=== PATIENT | female | born 1980 | race Caucasian/White ===

== ENCOUNTER 2016-07-30 01:53 | Emergency (ER) | payer MEDICARE, MEDICAID ==
[~2016-07-30] VITALS: Ht 167.6 cm; Wt 65.0 kg
[~2016-07-30 01:53] MED LIST: ALPR1TAB2 PO; ATOM40CA PO; BACL-19 PO; BUSP5TAB2 PO; CEFD300C2 PO; CLIN300C93 PO; CLON0.5T PO; GABA600T PO; LITH300C PO; LITH300T3 PO; LITH600C PO; LORA-446 PO; OLAN15TA3 PO; OLAN5TAB3 PO; OMEP40CA6 PO; PREG50CA PO; TRAZ100T15 PO; TRAZ150T68 PO; TRAZ50TA18 PO; ZIPR40CA2 PO; ZIPR80CA2 PO; ZOLP10TA PO
[2016-07-30 02:06] VITALS: BP 116/84
[2016-07-30] MEDS ORDERED: HYDROcodone/APAP 5/325 TABLET ONE (02:51)
[2016-07-30 02:55] LABS: HEMOGLOBIN 14.4 g/dL (11.7-16.4)
[2016-07-30] MEDS ORDERED: HYDROcodone/APAP 5/325 TABLET PO ONE (03:00)
[2016-07-30 03:08] LABS: ASPARTATE AMINO TRANSFERASE 15 U/L (15-37); BLOOD UREA NITROGEN 14 mg/dL (7-18)
[2016-07-30 03:48] LABS: HCG UR OBC PASS
== END 2016-07-30 03:34 | disposition home or self-care (01) ==
LOC: ED 02:48
DX: R10.9 Unspecified abdominal pain (principal); R51 Headache; G89.29 Other chronic pain; G40.909 Epilepsy, unspecified, not intractable, without status epilepticus
CPT/HCPCS: 36415; 80053; 81001; 81025; 83690; 85025; 87086; 99284

== ENCOUNTER 2016-09-12 15:01 | Emergency (ER) | payer MEDICARE, MEDICAID ==
[~2016-09-12] VITALS: Ht 167.6 cm; Wt 67.8 kg
[~2016-09-12 15:01] MED LIST changes: -CEFD300C2 PO; +CEFD300C37 PO
[2016-09-12 15:06] VITALS: BP 120/85
[2016-09-12] MEDS ORDERED: LORazepam 1MG TABLET PO ONE (16:00)
== END 2016-09-12 16:31 | disposition left against medical advice (07) ==
LOC: ED 15:47
DX: F41.9 Anxiety disorder, unspecified (principal); F43.9 Reaction to severe stress, unspecified; F15.10 Other stimulant abuse, uncomplicated; K21.9 Gastro-esophageal reflux disease without esophagitis; F31.9 Bipolar disorder, unspecified
CPT/HCPCS: 99284

== ENCOUNTER 2016-12-15 18:40 | Emergency (ER) | payer MEDICARE, MEDICAID ==
[~2016-12-15] VITALS: Ht 167.6 cm; Wt 70.0 kg
[~2016-12-15 18:40] MED LIST changes: +CLIN300C8 PO; -CLIN300C93 PO; +TRAZ150T62 PO; -TRAZ150T68 PO
[2016-12-15] MEDS ORDERED: ONDANSETRON ODT 4 MG ONE (19:09)
[2016-12-15] MEDS ORDERED: LORazepam 1MG TABLET ONE (19:09)
[2016-12-15 19:16] LABS: HEMATOCRIT 38.6 % (34.6-47.8); HEMOGLOBIN 13.2 g/dL (11.7-16.4); WHITE BLOOD COUNT 6.2 x10^3/uL (3.4-10)
[2016-12-15 19:27] LABS: ASPARTATE AMINO TRANSFERASE 31 U/L (15-37); BLOOD UREA NITROGEN 18 mg/dL (7-18)
[2016-12-15] MEDS ORDERED: LORazepam 1MG TABLET PO ONE (19:30)
[2016-12-15] MEDS ORDERED: ONDANSETRON ODT 4 MG PO ONE (19:30)
[2016-12-15] MEDS ORDERED: POTASSIUM CHLORIDE 20 MEQ TAB.ER.PRT ONE (19:53)
[2016-12-15 19:59] VITALS: BP 122/75
[2016-12-15] MEDS ORDERED: POTASSIUM CHLORIDE 20 MEQ TAB.ER.PRT PO ONE (20:00)
[2016-12-15] MEDS ORDERED: IBUPROFEN 200 MG TABLET ONE (20:06)
[2016-12-15] MEDS ORDERED: IBUPROFEN 200 MG TABLET PO ONE (20:30)
== END 2016-12-15 20:32 | disposition home or self-care (01) ==
LOC: ED 20:14
DX: R10.11 Right upper quadrant pain (principal); R10.12 Left upper quadrant pain; R10.13 Epigastric pain; B35.3 Tinea pedis; F15.10 Other stimulant abuse, uncomplicated; F31.9 Bipolar disorder, unspecified; F10.20 Alcohol dependence, uncomplicated
CPT/HCPCS: 36415; 76700; 80053; 81001; 83690; 84703; 85025; 93005; 99285; Q0162

== ENCOUNTER 2017-04-06 07:23 | Emergency (ER) | payer MEDICARE, MEDICAID ==
[~2017-04-06] VITALS: Ht 167.6 cm; Wt 70.5 kg
[2017-04-06 07:27] VITALS: BP 131/87
[2017-04-06] MEDS ORDERED: KETOROLAC 30 MG/1 ML IVPush ONE (08:00)
[2017-04-06] MEDS ORDERED: LORazepam 2 MG/ML, 1ML IVPush ONE (08:00)
[2017-04-06] MEDS ORDERED: SODIUM CHLORIDE 0.9% 1,000ML IVBOLUS ONE (08:00)
[2017-04-06] MEDS ORDERED: DIPHENHYDRAMINE 50 MG/ML, 1ML IVPush ONE (08:00)
[2017-04-06] MEDS ORDERED: SODIUM CHLORIDE FLUSH 10ML SYR IVF ONE (08:00)
[2017-04-06] MEDS ORDERED: METOCLOPRAMIDE 5 MG/ML, 2ML IVPush ONE (08:00)
[2017-04-06] MEDS ORDERED: KETOROLAC 30 MG/1 ML ONE (08:13)
[2017-04-06] MEDS ORDERED: METOCLOPRAMIDE 5 MG/ML, 2ML ONE (08:13)
[2017-04-06] MEDS ORDERED: DIPHENHYDRAMINE 50 MG/ML, 1ML ONE (08:13)
[2017-04-06] MEDS ORDERED: LORazepam 2 MG/ML, 1ML ONE (08:14)
== END 2017-04-06 09:05 | disposition home or self-care (01) ==
LOC: ED 08:33
DX: G43.909 Migraine, unspecified, not intractable, without status migrainosus (principal); K21.9 Gastro-esophageal reflux disease without esophagitis; F90.9 Attention-deficit hyperactivity disorder, unspecified type
CPT/HCPCS: 82962; 96374; 96375; 99284; J1200; J1885; J2060; J2765; J7030

== ENCOUNTER 2017-05-11 10:27 | Emergency (ER) | payer MEDICARE, MEDICAID ==
[~2017-05-11] VITALS: Ht 167.6 cm; Wt 76.3 kg
[2017-05-11 11:58] VITALS: BP 128/86
== END 2017-05-11 12:00 | disposition home or self-care (01) ==
LOC: ED 11:05
DX: F15.180 Other stimulant abuse with stimulant-induced anxiety disorder (principal); F31.9 Bipolar disorder, unspecified; K21.9 Gastro-esophageal reflux disease without esophagitis; F43.10 Post-traumatic stress disorder, unspecified; F90.9 Attention-deficit hyperactivity disorder, unspecified type; G40.909 Epilepsy, unspecified, not intractable, without status epilepticus; G89.29 Other chronic pain; Z88.0 Allergy status to penicillin; Z88.1 Allergy status to other antibiotic agents
CPT/HCPCS: 99284; Q0177

== ENCOUNTER 2017-05-23 23:34 | Emergency (ER) | payer MEDICARE, MEDICAID ==
[~2017-05-23] VITALS: Ht 167.6 cm; Wt 74.1 kg
[2017-05-23 23:36] VITALS: BP 140/95
[2017-05-24] MEDS ORDERED: DEXAMETHASONE 4 MG TABLET PO STA (00:40)
[2017-05-24] MEDS ORDERED: DEXAMETHASONE 4 MG TABLET ONE (00:46)
[2017-05-24] MEDS ORDERED: LORazepam 1MG TABLET ONE (00:47)
[2017-05-24] MEDS ORDERED: LORazepam 1MG TABLET PO ONE (01:00)
== END 2017-05-24 01:06 | disposition home or self-care (01) ==
LOC: ED 05-24 00:28
DX: F41.1 Generalized anxiety disorder (principal); J02.8 Acute pharyngitis due to other specified organisms; B97.89 Other viral agents as the cause of diseases classified elsewhere; G40.909 Epilepsy, unspecified, not intractable, without status epilepticus; F32.9 Major depressive disorder, single episode, unspecified
CPT/HCPCS: 99284

== ENCOUNTER 2017-10-26 21:19 | Emergency (ER) | payer MEDICARE, MEDICAID ==
[2017-10-26 21:21] VITALS: BP 150/83
[2017-10-26] MEDS ORDERED: IBUPROFEN 200 MG TABLET PO ONE (22:00)
[2017-10-26] MEDS ORDERED: IBUPROFEN 200 MG TABLET ONE (22:00)
== END 2017-10-26 22:32 | disposition home or self-care (01) ==
LOC: ED 22:17
DX: R21 Rash and other nonspecific skin eruption (principal); K21.9 Gastro-esophageal reflux disease without esophagitis; F29 Unspecified psychosis not due to a substance or known physiological condition; F43.10 Post-traumatic stress disorder, unspecified; G40.909 Epilepsy, unspecified, not intractable, without status epilepticus; F17.210 Nicotine dependence, cigarettes, uncomplicated
CPT/HCPCS: 82962; 99282

== ENCOUNTER 2018-04-19 12:50 | Emergency (ER) | payer MEDICARE, MEDICAID ==
[~2018-04-19] VITALS: Ht 167.6 cm; Wt 86.0 kg
[~2018-04-19 12:50] MED LIST changes: +TRAZ-137 PO; -TRAZ100T15 PO; -TRAZ50TA18 PO; +TRAZ50TA66 PO
--- NOTE | 2018-04-19 13:21 | NUR ---
PT PRESENTS TO ED WITH INTERMITTENT SHOOTING CP TO LEFT CHEST AND SHOULDER WITH UNDERLYING CONSTANT DULL ACHE. BEGAN THIS AM AT MIDNIGHT AFTER METH USE. PT ALSO STATES THAT A CLOSE FRIEND RECENTLY AND IS MAKING SYMPTOMS WORSE. CONNECTED TO ALL MONITORS. HR HIGH, ALL OTHER VSS. MD AT BEDSIDE FOR ASSESSMENT. AWAITING ORDERS.
[2018-04-19] MEDS ORDERED: IBUPROFEN 200 MG TABLET PO ONE (13:30)
[2018-04-19] MEDS ORDERED: IBUPROFEN 200 MG TABLET ONE (13:33)
--- NOTE | 2018-04-19 13:36 | NUR ---
pt medicated for pain. awaiting results at this time.
[2018-04-19 13:57] VITALS: BP 150/94
--- NOTE | 2018-04-19 14:16 | NUR ---
F/U CALL PLACED TO LAB, TECH STATES 4 MINUTES UNTIL ABLE TO POST RESULT
[2018-04-19 14:20] LABS: TROPONIN I < 0.015 ng/mL (0.000-0.045)
--- NOTE | 2018-04-19 14:23 | NUR ---
pt requesting med for episodes of crying and anxiety. md aware. no orders received at this time. pt states understanding and is resting in bed. increased hr, all other vss.
== END 2018-04-19 15:04 | disposition home or self-care (01) ==
LOC: ED 14:57
DX: R07.89 Other chest pain (principal); F15.10 Other stimulant abuse, uncomplicated; F32.9 Major depressive disorder, single episode, unspecified; F90.9 Attention-deficit hyperactivity disorder, unspecified type
CPT/HCPCS: 36415; 71045; 84484; 93005; 99284

== ENCOUNTER 2019-10-27 16:38 | Inpatient (IN) | payer MEDICARE, MEDICAID ==
[~2019-10-27] VITALS: Ht 170.2 cm; Wt 83.3 kg
[~2019-10-27 16:38] MED LIST changes: +OMEP40CA42 PO; -OMEP40CA6 PO; -TRAZ-137 PO; +TRAZ-175 PO
[2019-10-27 20:47] LABS: MICROSCOPIC AUTO
[2019-10-27] MEDS ORDERED: POLYETHYLENE GLYCOL 17 GM PACKET PO PRN (21:00)
[2019-10-27] MEDS ORDERED: BISACODYL 10 MG SUPP PR PRN (21:00)
[2019-10-27] MEDS ORDERED: PLEASE ENTER HEIGHT AND WEIGHT MC SCH (21:30)
[2019-10-27] MEDS: TRAZODONE 150MG TABLET PO SCH (21:31)
[2019-10-27] MEDS: ACETAMINOPHEN 325 MG TABLET PO PRN (21:32)
[2019-10-27] MEDS: OLANZAPINE 10 MG TABLET PO SCH (21:32)
[2019-10-27] MEDS: HYDROXYZINE PAMOATE 50MG CAP PO PRN (21:33)
[2019-10-27] MEDS: HYDROcodone/APAP 5/325 TABLET PO PRN (21:34)
[2019-10-27] MEDS: LAMOTRIGINE 200 MG TABLET PO SCH (21:51)
[2019-10-27] MEDS: GABAPENTIN 100 MG CAPSULE PO SCH (21:52)
[2019-10-27 22:00] VITALS: BP 127/90
[2019-10-27 22:21] LABS: AMPHETAMINE SCREEN, URINE Positive (Negative); BARBITURATE SCREEN, URINE Negative (Negative); BENZODIAZEPINE SCREEN, URINE Negative (Negative); CANNABINOID SCREEN, URINE Negative (Negative); COCAINE SCREEN, URINE Negative (Negative); METHADONE SCREEN, URINE Negative (Negative); OPIATE SCREEN, URINE Positive (Negative)
[2019-10-28] MEDS: PANTOPRAZOLE 40MG TABLET PO SCH (05:43)
[2019-10-28] MEDS: HYDROcodone/APAP 5/325 TABLET PO PRN ×2 (05:53→14:22)
[2019-10-28 07:38] VITALS: BP 114/74
[2019-10-28 08:59] LABS: BASOPHILS # (AUTO) 0.03 x10^3/uL (0-0.1); BASOPHILS % (AUTO) 1 % (0-1); EOSINOPHILS # (AUTO) 0.19 x10^3/uL (0-0.4); EOSINOPHILS % (AUTO) 4 % (1-7); LYMPHOCYTES # (AUTO) 1.83 x10^3/uL (1-3.4); LYMPHOCYTES % (AUTO) 37 % (22-44); MD NO; MEAN CORPUSCULAR HEMOGLOBIN 24.6 pg (27.0-34.8); MEAN CORPUSCULAR HGB CONC 31.2 g/dL (32.4-35.8); MEAN PLATELET VOLUME 8.3 fL (7.4-10.4); MONOCYTES # (AUTO) 0.47 x10^3/uL (0.2-0.8); MONOCYTES % (AUTO) 10 % (2-9); NEUTROPHILS # (AUTO) 2.47 x10^3/uL (1.8-6.8); NEUTROPHILS % (AUTO) 50 % (42-75); PLATELET COUNT 242 x10^3/uL (130-400); RED BLOOD COUNT 4.47 x10^6/uL (3.82-5.3); RED CELL DISTRIBUTION WIDTH 17.7 % (9.6-15.2)
[2019-10-28] MEDS: HYDROXYZINE PAMOATE 50MG CAP PO PRN (10:24)
[2019-10-28] MEDS: ESCITALOPRAM 10MG TABLET PO SCH (10:25)
[2019-10-28] MEDS: GABAPENTIN 100 MG CAPSULE PO SCH ×3 (10:25→20:12)
[2019-10-28 10:45] LABS: ALBUMIN 3.3 g/dL (3.4-5.0); CALCIUM 8.8 mg/dL (8.5-10.1)
[2019-10-28] MEDS ORDERED: ORAJEL 7GM TUBE MM PRN (11:00)
[2019-10-28 11:02] LABS: ALANINE AMINOTRANSFERASE 26 U/L (12-78); ALKALINE PHOSPHATASE 79 U/L (45-117); BILIRUBIN,TOTAL 0.3 mg/dL (0.2-1.0); CHOL/HDL RATIO 4.7; CHOLESTEROL, TOTAL 174 mg/dL (140-239); CREATININE 0.77 mg/dL (0.55-1.02); HDL CHOL % 21 % (28-40); HDL CHOLESTEROL (DIRECT) 37 mg/dL (40-60); TOTAL PROTEIN 7.2 g/dL (6.4-8.2)
[2019-10-28 11:19] LABS: ANION GAP 4 mmol/L (5-15); BILIRUBIN, DIRECT < 0.1 mg/dL (0.1-0.2); BILIRUBIN,INDIRECT 0.2 mg/dL (0.0-2.0); CHLORIDE 109 mmol/L (98-107)
[2019-10-28 12:00] LABS: FREE T4 (FREE THYROXINE) 1.17 ng/dL (0.76-1.46); LDL CHOLESTEROL,CALCULATED 101 mg/dL (54-169); LDL/HDL RATIO 2.7 (0.5-3.0); TRIGLYCERIDES 180 mg/dL (50-200); VLDL CHOLESTEROL 36 mg/dL (0-25)
[2019-10-28] MEDS: CEFDINIR 300 MG CAPSULE PO SCH ×2 (12:06→20:13)
[2019-10-28] MEDS: NICOTINE 14MG/24 HR PATCH.TD24 TD SCH (12:07)
[2019-10-28] MEDS: CHLORHEXIDINE 15 ML UDC MM SCH ×3 (12:08→20:16)
[2019-10-28] MEDS: LORazepam 1MG TABLET PO PRN (15:44)
[2019-10-28] MEDS: FERROUS GLUCONATE 324 MG TABLET PO SCH (17:16)
[2019-10-28 19:30] VITALS: BP 123/87
[2019-10-28] MEDS: TRAZODONE 150MG TABLET PO SCH (20:12)
[2019-10-28] MEDS: LAMOTRIGINE 200 MG TABLET PO SCH (20:13)
[2019-10-28] MEDS: OLANZAPINE 10 MG TABLET PO SCH (20:14)
[2019-10-29] MEDS: PANTOPRAZOLE 40MG TABLET PO SCH (06:37)
[2019-10-29 07:30] VITALS: BP 163/95
[2019-10-29] MEDS: GABAPENTIN 100 MG CAPSULE PO SCH ×3 (08:50→20:52)
[2019-10-29] MEDS: FERROUS GLUCONATE 324 MG TABLET PO SCH (08:51)
[2019-10-29] MEDS: ESCITALOPRAM 10MG TABLET PO SCH (08:51)
[2019-10-29] MEDS: CEFDINIR 300 MG CAPSULE PO SCH (08:51)
[2019-10-29] MEDS: CHLORHEXIDINE 15 ML UDC MM SCH ×5 (08:52→20:52)
[2019-10-29] MEDS: LORazepam 1MG TABLET PO PRN ×3 (08:57→20:51)
[2019-10-29] MEDS: NICOTINE 14MG/24 HR PATCH.TD24 TD SCH (08:58)
[2019-10-29 19:40] VITALS: BP 110/72
[2019-10-29] MEDS: LAMOTRIGINE 200 MG TABLET PO SCH (20:51)
[2019-10-29] MEDS: TRAZODONE 150MG TABLET PO SCH (20:51)
[2019-10-29] MEDS: OLANZAPINE 10 MG TABLET PO SCH (20:52)
[2019-10-30] MEDS: PANTOPRAZOLE 40MG TABLET PO SCH (06:12)
[2019-10-30 07:51] VITALS: BP 102/68
[2019-10-30] MEDS: GABAPENTIN 100 MG CAPSULE PO SCH ×3 (08:59→20:24)
[2019-10-30] MEDS: CHLORHEXIDINE 15 ML UDC MM SCH ×3 (09:00→20:30)
[2019-10-30] MEDS: IRON SUCROSE COMPLEX 100MG/5ML IV SCH (09:00)
[2019-10-30] MEDS: ESCITALOPRAM 10MG TABLET PO SCH (09:00)
[2019-10-30] MEDS: NICOTINE 14MG/24 HR PATCH.TD24 TD SCH (09:12)
[2019-10-30] MEDS: LORazepam 1MG TABLET PO PRN ×3 (09:13→22:21)
[2019-10-30 19:40] VITALS: BP 117/80
[2019-10-30] MEDS: OLANZAPINE 10 MG TABLET PO SCH (20:24)
[2019-10-30] MEDS: TRAZODONE 150MG TABLET PO SCH (20:24)
[2019-10-30] MEDS: LAMOTRIGINE 200 MG TABLET PO SCH (20:24)
[2019-10-31] MEDS: PANTOPRAZOLE 40MG TABLET PO SCH (05:49)
[2019-10-31 07:32] VITALS: BP 110/70
[2019-10-31] MEDS: ESCITALOPRAM 10MG TABLET PO SCH (08:45)
[2019-10-31] MEDS: CHLORHEXIDINE 15 ML UDC MM SCH ×3 (08:45→21:28)
[2019-10-31] MEDS: GABAPENTIN 100 MG CAPSULE PO SCH ×3 (08:46→21:27)
[2019-10-31] MEDS: IRON SUCROSE COMPLEX 100MG/5ML IV SCH (08:46)
[2019-10-31] MEDS: NICOTINE 14MG/24 HR PATCH.TD24 TD SCH (09:00)
[2019-10-31] MEDS: LORazepam 1MG TABLET PO PRN ×3 (09:00→21:27)
[2019-10-31] MEDS: DOCUSATE 100 MG CAPSULE PO PRN (16:42)
[2019-10-31 19:43] VITALS: BP 110/73
[2019-10-31] MEDS: LAMOTRIGINE 200 MG TABLET PO SCH (21:26)
[2019-10-31] MEDS: OLANZAPINE 10 MG TABLET PO SCH (21:27)
[2019-10-31] MEDS: TRAZODONE 150MG TABLET PO SCH (21:27)
[2019-11-01] MEDS: PANTOPRAZOLE 40MG TABLET PO SCH (05:59)
[2019-11-01 07:25] VITALS: BP 115/72
[2019-11-01] MEDS: NICOTINE 14MG/24 HR PATCH.TD24 TD SCH (08:52)
[2019-11-01] MEDS: LORazepam 1MG TABLET PO PRN ×3 (08:54→21:36)
[2019-11-01] MEDS: GABAPENTIN 100 MG CAPSULE PO SCH ×3 (08:54→20:15)
[2019-11-01] MEDS: ESCITALOPRAM 10MG TABLET PO SCH (08:54)
[2019-11-01] MEDS: CHLORHEXIDINE 15 ML UDC MM SCH ×3 (09:00→20:19)
[2019-11-01 19:32] VITALS: BP 112/74
[2019-11-01] MEDS: OLANZAPINE 10 MG TABLET PO SCH (20:14)
[2019-11-01] MEDS: LAMOTRIGINE 200 MG TABLET PO SCH (20:15)
[2019-11-01] MEDS: TRAZODONE 150MG TABLET PO SCH (20:15)
[2019-11-01] MEDS: ACETAMINOPHEN 325 MG TABLET PO PRN (21:45)
[2019-11-02] MEDS: PANTOPRAZOLE 40MG TABLET PO SCH (05:58)
[2019-11-02 07:53] VITALS: BP 101/67
[2019-11-02] MEDS: LORazepam 1MG TABLET PO PRN ×2 (08:11→16:34)
[2019-11-02] MEDS: GABAPENTIN 100 MG CAPSULE PO SCH ×3 (08:11→20:11)
[2019-11-02] MEDS: ESCITALOPRAM 10MG TABLET PO SCH (08:11)
[2019-11-02] MEDS: NICOTINE 14MG/24 HR PATCH.TD24 TD SCH (08:14)
[2019-11-02] MEDS: CHLORHEXIDINE 15 ML UDC MM SCH ×3 (09:00→20:11)
[2019-11-02] MEDS: DOCUSATE 100 MG CAPSULE PO PRN (13:07)
[2019-11-02] MEDS: ACETAMINOPHEN 325 MG TABLET PO PRN ×2 (14:52→21:47)
[2019-11-02 19:38] VITALS: BP 114/72
[2019-11-02] MEDS: OLANZAPINE 10 MG TABLET PO SCH (20:11)
[2019-11-02] MEDS: LAMOTRIGINE 200 MG TABLET PO SCH (20:11)
[2019-11-02] MEDS: TRAZODONE 150MG TABLET PO SCH (21:43)
[2019-11-03] MEDS: PANTOPRAZOLE 40MG TABLET PO SCH (05:28)
[2019-11-03 07:39] VITALS: BP 108/74
[2019-11-03] MEDS: LORazepam 1MG TABLET PO PRN ×2 (08:10→16:35)
[2019-11-03] MEDS: GABAPENTIN 100 MG CAPSULE PO SCH ×3 (08:10→20:15)
[2019-11-03] MEDS: CHLORHEXIDINE 15 ML UDC MM SCH ×3 (08:11→20:15)
[2019-11-03] MEDS: ESCITALOPRAM 10MG TABLET PO SCH (08:11)
[2019-11-03] MEDS: NICOTINE 14MG/24 HR PATCH.TD24 TD SCH (08:11)
[2019-11-03] MEDS: ONDANSETRON ODT 4 MG PO PRN (08:55)
[2019-11-03 19:30] VITALS: BP 108/75
[2019-11-03] MEDS: OLANZAPINE 10 MG TABLET PO SCH (20:15)
[2019-11-03] MEDS: LAMOTRIGINE 200 MG TABLET PO SCH (20:15)
[2019-11-03] MEDS: ACETAMINOPHEN 325 MG TABLET PO PRN (20:15)
[2019-11-03] MEDS: TRAZODONE 150MG TABLET PO SCH (22:07)
[2019-11-04] MEDS: PANTOPRAZOLE 40MG TABLET PO SCH (05:30)
[2019-11-04 08:00] VITALS: BP 103/70
[2019-11-04] MEDS: LORazepam 1MG TABLET PO PRN ×2 (08:21→17:54)
[2019-11-04] MEDS: GABAPENTIN 100 MG CAPSULE PO SCH ×3 (08:21→20:21)
[2019-11-04] MEDS: ESCITALOPRAM 10MG TABLET PO SCH (08:22)
[2019-11-04] MEDS: NICOTINE 14MG/24 HR PATCH.TD24 TD SCH (09:00)
[2019-11-04] MEDS: CHLORHEXIDINE 15 ML UDC MM SCH ×3 (09:00→20:25)
[2019-11-04 19:55] VITALS: BP 112/77
[2019-11-04] MEDS: OLANZAPINE 10 MG TABLET PO SCH (20:21)
[2019-11-04] MEDS: LAMOTRIGINE 200 MG TABLET PO SCH (20:21)
[2019-11-04] MEDS: TRAZODONE 150MG TABLET PO SCH (20:22)
[2019-11-05] MEDS: PANTOPRAZOLE 40MG TABLET PO SCH (05:48)
[2019-11-05] MEDS: LORazepam 1MG TABLET PO PRN ×3 (05:48→20:32)
[2019-11-05 07:32] VITALS: BP 114/80
[2019-11-05] MEDS: CHLORHEXIDINE 15 ML UDC MM SCH ×3 (08:42→20:31)
[2019-11-05] MEDS: GABAPENTIN 100 MG CAPSULE PO SCH ×3 (08:42→20:32)
[2019-11-05] MEDS: ESCITALOPRAM 10MG TABLET PO SCH (08:57)
[2019-11-05] MEDS: NICOTINE 14MG/24 HR PATCH.TD24 TD SCH ×2 (09:14→10:41)
[2019-11-05] MEDS: ACETAMINOPHEN 325 MG TABLET PO PRN ×2 (10:46→17:27)
[2019-11-05] MEDS: DOCUSATE 100 MG CAPSULE PO PRN (10:46)
[2019-11-05 13:20] VITALS: BP 111/77
[2019-11-05 19:56] VITALS: BP 117/80
[2019-11-05] MEDS: LAMOTRIGINE 200 MG TABLET PO SCH (20:32)
[2019-11-05] MEDS: OLANZAPINE 10 MG TABLET PO SCH (20:32)
[2019-11-05] MEDS: TRAZODONE 150MG TABLET PO SCH (21:00)
[2019-11-06] MEDS: PANTOPRAZOLE 40MG TABLET PO SCH (06:08)
[2019-11-06] MEDS: LORazepam 1MG TABLET PO PRN ×3 (06:12→19:54)
[2019-11-06 07:15] VITALS: BP 108/75
[2019-11-06] MEDS: GABAPENTIN 100 MG CAPSULE PO SCH ×3 (08:18→21:54)
[2019-11-06] MEDS: ESCITALOPRAM 10MG TABLET PO SCH (08:18)
[2019-11-06] MEDS: NICOTINE 14MG/24 HR PATCH.TD24 TD SCH (08:18)
[2019-11-06] MEDS: CHLORHEXIDINE 15 ML UDC MM SCH ×3 (08:19→21:54)
[2019-11-06] MEDS: ACETAMINOPHEN 325 MG TABLET PO PRN ×3 (09:50→23:11)
[2019-11-06 19:23] VITALS: BP 114/78
[2019-11-06] MEDS: TRAZODONE 150MG TABLET PO SCH (21:53)
[2019-11-06] MEDS: OLANZAPINE 10 MG TABLET PO SCH (21:53)
[2019-11-06] MEDS: LAMOTRIGINE 200 MG TABLET PO SCH (21:53)
[2019-11-07] MEDS: PANTOPRAZOLE 40MG TABLET PO SCH (06:14)
[2019-11-07 07:31] VITALS: BP 118/78
[2019-11-07] MEDS: ESCITALOPRAM 10MG TABLET PO SCH (08:02)
[2019-11-07] MEDS: NICOTINE 14MG/24 HR PATCH.TD24 TD SCH (08:02)
[2019-11-07] MEDS: LORazepam 1MG TABLET PO PRN ×2 (08:02→15:26)
[2019-11-07] MEDS: GABAPENTIN 100 MG CAPSULE PO SCH ×3 (08:02→19:57)
[2019-11-07] MEDS: CHLORHEXIDINE 15 ML UDC MM SCH ×3 (08:03→20:09)
[2019-11-07] MEDS: ONDANSETRON ODT 4 MG PO PRN ×2 (08:42→18:21)
[2019-11-07] MEDS ORDERED: HYDROcodone/APAP 5/325 TABLET PO ONE (11:30)
[2019-11-07] MEDS: HYDROXYZINE PAMOATE 50MG CAP PO PRN (13:27)
[2019-11-07 19:46] VITALS: BP 114/77
[2019-11-07] MEDS: TRAZODONE 150MG TABLET PO SCH (19:57)
[2019-11-07] MEDS: LAMOTRIGINE 200 MG TABLET PO SCH (19:57)
[2019-11-07] MEDS: OLANZAPINE 10 MG TABLET PO SCH (19:57)
[2019-11-08 07:36] VITALS: BP 119/80
[2019-11-08] MEDS: GABAPENTIN 100 MG CAPSULE PO SCH ×3 (08:01→20:39)
[2019-11-08] MEDS: NICOTINE 14MG/24 HR PATCH.TD24 TD SCH (08:01)
[2019-11-08] MEDS: CHLORHEXIDINE 15 ML UDC MM SCH ×3 (08:01→20:40)
[2019-11-08] MEDS: ESCITALOPRAM 10MG TABLET PO SCH (08:01)
[2019-11-08] MEDS: LORazepam 1MG TABLET PO PRN ×2 (08:02→16:01)
[2019-11-08] MEDS: PANTOPRAZOLE 40MG TABLET PO SCH (08:05)
[2019-11-08] MEDS ORDERED: GABA-826 PO (09:38)
[2019-11-08] MEDS ORDERED: CHLO473M MM (09:38)
[2019-11-08] MEDS ORDERED: PANT40TA6 PO (09:38)
[2019-11-08] MEDS ORDERED: LAMO200T6 PO (09:38)
[2019-11-08] MEDS ORDERED: TRAZ150T62 PO (09:38)
[2019-11-08] MEDS ORDERED: OLAN10TA9 PO (09:38)
[2019-11-08] MEDS ORDERED: ESCI10TA PO (09:38)
[2019-11-08] MEDS ORDERED: NICO-486 TD (09:38)
[2019-11-08] MEDS ORDERED: LORA-446 PO (09:38)
[2019-11-08] MEDS: ACETAMINOPHEN 325 MG TABLET PO PRN ×2 (09:54→18:33)
[2019-11-08] MEDS: ONDANSETRON ODT 4 MG PO PRN (13:06)
[2019-11-08 20:17] VITALS: BP 109/72
[2019-11-08] MEDS: TRAZODONE 150MG TABLET PO SCH (20:39)
[2019-11-08] MEDS: LAMOTRIGINE 200 MG TABLET PO SCH (20:39)
[2019-11-08] MEDS: OLANZAPINE 10 MG TABLET PO SCH (20:39)
[2019-11-09 07:33] VITALS: BP 103/69
[2019-11-09] MEDS: PANTOPRAZOLE 40MG TABLET PO SCH (08:03)
[2019-11-09] MEDS: GABAPENTIN 100 MG CAPSULE PO SCH (08:04)
[2019-11-09] MEDS: ESCITALOPRAM 10MG TABLET PO SCH (08:04)
[2019-11-09] MEDS: CHLORHEXIDINE 15 ML UDC MM SCH (09:09)
[2019-11-09] MEDS: NICOTINE 14MG/24 HR PATCH.TD24 TD SCH (09:10)
== END 2019-11-09 11:00 | disposition home or self-care (01) | DRG 885 ==
LOC: 3E 19:45
PROVIDERS: ADMIT Psychiatry & Neurology Psychosomatic Medicine; ATTEND Psychiatry & Neurology Psychosomatic Medicine
DX: F31.60 Bipolar disorder, current episode mixed, unspecified (principal); R45.851 Suicidal ideations; N39.0 Urinary tract infection, site not specified; Z88.0 Allergy status to penicillin; Z88.8 Allergy status to other drugs, medicaments and biological substances; D50.9 Iron deficiency anemia, unspecified; F10.10 Alcohol abuse, uncomplicated; F11.10 Opioid abuse, uncomplicated; F15.10 Other stimulant abuse, uncomplicated; F17.210 Nicotine dependence, cigarettes, uncomplicated; F41.0 Panic disorder [episodic paroxysmal anxiety]; F41.1 Generalized anxiety disorder; F43.10 Post-traumatic stress disorder, unspecified; F60.3 Borderline personality disorder; F63.9 Impulse disorder, unspecified; G47.00 Insomnia, unspecified; G89.29 Other chronic pain; I10 Essential (primary) hypertension; K12.1 Other forms of stomatitis; K21.9 Gastro-esophageal reflux disease without esophagitis; K59.00 Constipation, unspecified; M79.7 Fibromyalgia; Z76.5 Malingerer [conscious simulation]; Z79.899 Other long term (current) drug therapy; Z82.49 Family history of ischemic heart disease and other diseases of the circulatory system; K08.89 Other specified disorders of teeth and supporting structures
CPT/HCPCS: 36415; 71045; 80048; 80061; 80076; 80307; 81001; 82607; 82728; 83540; 83550; 84439; 84443; 84466; 85025; 87086; 93005; Q0162